=== PATIENT | female | born 1970 | race Caucasian/White ===

== ENCOUNTER 2017-04-19 10:10 | Emergency (ER) | payer SELFPAY ==
[2017-04-19] MEDS ORDERED: ONDANSETRON 4 MG TAB.RAPDIS PO ONE (11:18)
[2017-04-19] MEDS ORDERED: OXYCODONE-ACETAMINOPHEN 5-325 MG TABLET PO ONE (11:18)
--- NOTE | 2017-04-19 11:20 | ER Document Report ---
ED Medical Screen (RME) - General Chief Complaint: Abscess Stated Complaint: POSSIBLE ABSCESS Time Seen by Provider: 04/19/17 11:15 Notes: 46-year-old female with an abscess in the right breast under the superior areolar region. Started as a small knot a month ago and has gotten progressively worse the past 2 weeks, has been draining some. I have greeted and performed a rapid initial assessment of this patient. A comprehensive ED assessment and evaluation of the patient, analysis of test results and completion of the medical decision making process will be conducted by additional ED providers. TRAVEL OUTSIDE OF THE [place] IN LAST 30 DAYS: No - Related Data Allergies/Adverse Reactions: No Known Allergies Allergy (Verified 04/19/17 10:23) Past Medical History Renal/ Medical History: Denies: Hx Peritoneal Dialysis - Immunizations Immunizations up to date: Yes Hx Diphtheria, Pertussis, Tetanus Vaccination: Yes Physical Exam - Vital signs Vitals: Temp Pulse Resp BP Pulse Ox 98.2 F 80 17 146/86 H 99 04/19/17 10:24 04/19/17 10:24 04/19/17 10:24 04/19/17 10:24 04/19/17 10:24 Course - Vital Signs Vital signs: Temp Pulse Resp BP Pulse Ox 98.2 F 80 17 146/86 H 99 04/19/17 10:24 04/19/17 10:24 04/19/17 10:24 04/19/17 10:24 04/19/17 10:24
[2017-04-19] MEDS ORDERED: LIDOCAINE 1% INJ-PF (10 MG/ML) 30 ML SDV INJ ONE (12:46)
--- NOTE | 2017-04-19 12:53 | ER Document Report ---
ED General - General Chief Complaint: Abscess Stated Complaint: POSSIBLE ABSCESS Time Seen by Provider: 04/19/17 11:15 TRAVEL OUTSIDE OF THE [place] IN LAST 30 DAYS: No - HPI Notes: Patient is a 46-year-old female presents to the ED complaining of an abscess infection to her right nipple 1 month that has been worsening over the last 1- 2 weeks. Patient states that she was able to get scant amount discharge out of it a few days ago. She has stopped trying to get fluid out since then. + pain. She still eating during eye problems. She has not noticed any red streaking. She has no antibiotic allergies. No other significant past medical history. No surgical history. No other concerns or complaints. Denies any fever, headaches, URI, sore throat, chest pain, palpitations, syncope, cough, wheeze, shortness breath, dyspnea, abdominal pain, nausea/vomiting/diarrhea. - Related Data Allergies/Adverse Reactions: No Known Allergies Allergy (Verified 04/19/17 10:23) Past Medical History - Social History Smoking Status: Current Every Day Smoker Chew tobacco use (# tins/day): No Frequency of alcohol use: Occasional Drug Abuse: None Family History: Reviewed & Not Pertinent Patient has suicidal ideation: No Patient has homicidal ideation: No Renal/ Medical History: Denies: Hx Peritoneal Dialysis Surgical Hx: Negative - Immunizations Immunizations up to date: Yes Hx Diphtheria, Pertussis, Tetanus Vaccination: Yes Review of Systems - Review of Systems Notes: REVIEW OF SYSTEMS: CONSTITUTIONAL : Denies fever, chills, or sweats. Denies recent illness. EENT: Denies eye, ear, throat, or mouth pain or symptoms. Denies nasal or sinus congestion or discharge. Denies throat, tongue, or mouth swelling or difficulty swallowing. CARDIOVASCULAR: Denies chest pain. Denies palpitations or racing or irregular heart beat. Denies ankle edema. RESPIRATORY: Denies cough, cold, or chest congestion. Denies shortness of breath, difficulty breathing, or wheezing. GASTROINTESTINAL: Denies abdominal pain or distention. Denies nausea, vomiting , or diarrhea. Denies blood in vomitus, stools, or per rectum. Denies black, tarry stools. Denies constipation. GENITOURINARY: Denies difficulty urinating, painful urination, burning, frequency, blood in urine, or discharge. MUSCULOSKELETAL: Denies back or neck pain or stiffness. Denies joint pain or swelling. SKIN: see hpi ALL OTHER SYSTEMS REVIEWED AND NEGATIVE. Dictation was performed using [employer] voice recognition software Physical Exam - Vital signs Vitals: Temp Pulse Resp BP Pulse Ox 98.2 F 80 17 146/86 H 99 04/19/17 10:24 04/19/17 10:24 04/19/17 10:24 04/19/17 10:24 04/19/17 10:24 Notes: PHYSICAL EXAMINATION: GENERAL: Well-appearing, well-nourished and in no acute distress. NECK: Normal range of motion, supple without lymphadenopathy. No rigidity. Chest: + inflammation, abscess (approx 2-2.5cm), surrounding erythema with mild induration rt clarence-aeriola/nipple. + tenderness. No discharge. LUNGS: Breath sounds clear to auscultation bilaterally and equal. No wheezes rales or rhonchi. HEART: Regular rate and rhythm without murmurs, rubs, gallops. Extremities: No cyanosis, clubbing, or edema b/l. Peripheral pulses 2+. Capillary refill less than 3 seconds. PSYCH: Normal mood, normal affect. SKIN: Warm, Dry, normal turgor, no rashes or lesions noted.--See chest exam. Course - Re-evaluation Re-evalutation: 04/19/17 14:11 Patient is an afebrile, well-hydrated, 46-year-old female who presents to the ED with a nipple areolar abscess to the right side. Vitals are stable. PE otherwise unremarkable. Consult with surgeon Dr. Lester who will come perform an I&D and take over treatment. wound instructions per Dr. Lester. Ancef given IV today. Augmentin 875/125mg Rx'd PO BID x7 days. Wound culture obtained. F/u: with Dr. Park. Return to the ED with any worsening/ concerning symptoms otherwise as reviewed. Patient is in agreement. - Vital Signs Vital signs: Temp Pulse Resp BP Pulse Ox 98.2 F 55 L 16 147/89 H 99 04/19/17 10:24 04/19/17 16:00 04/19/17 16:00 04/19/17 16:00 04/19/17 16:00 Discharge - Discharge Clinical Impression: Abscess Cellulitis Qualifiers: Site of cellulitis: other site Qualified Code(s): L03.818 - Cellulitis of other sites Condition: Stable Disposition: HOME, SELF-CARE Instructions: Abscess ([facility]), Post Incision and Drainage Additional Instructions: Wound instructions as reviewed with Dr. Lester Wound dressing changes daily Use bacitracin as directed Take antibiotic as directed Recheck with Dr. Park (surgeon) Recheck with PCM this week as well Return to the ED with any worsening symptoms and/or development of fever, headache, chest pain, palpitations, syncope, shortness of breath, trouble breathing, abdominal pain, n/v/d, red streaks, or other worsening symptoms that are concerning to you. Prescriptions: Amox Tr/Potassium Clavulanate [Augmentin 875-125 Tablet] 1 tab PO BID 7 Days Referrals: JENNIFER PARK MD [ACTIVE STAFF] - Follow up as needed
[2017-04-19] MEDS ORDERED: MORPHINE SULFATE 10 MG/ML INJ IV ONE ×2 (13:28→14:30)
[2017-04-19] MEDS ORDERED: NORMAL SALINE INJ/PF 0.9% 10 ML SDV IV ONE (13:39)
[2017-04-19] MEDS ORDERED: CEFAZOLIN 2 GM/D5W RTU 2 GM/50 ML RTUPB IV SCH (15:00)
--- NOTE | 2017-04-19 15:44 | OPERATIVE REPORT E ---
Operative Report NAME: EVELINE ECHOLS : 1970 AGE: 46Y DATE OF SURGERY: 04/19/2017 ROOM: PREOPERATIVE DIAGNOSIS: Right nipple areolar complex abscess. POSTOPERATIVE DIAGNOSIS: Right nipple areolar complex abscess. PROCEDURE: Incision and drainage of right nipple areolar complex abscess. SURGEON: ALLIE ROWAN M.D. BEEF TRIMMER: None. BLEEDING: Minimal. COMPLICATIONS: None. ANESTHESIA: Three mL of 1% lidocaine with epinephrine and 4 mg IV push morphine. INDICATIONS AND FINDINGS: A healthy 46-year-old female with a month history of right nipple areolar complex inflammation, swelling, and redness which has become worse and has prompted the patient to come to the emergency room for the above symptoms today. On physical examination, she has an obvious abscess of the right nipple areolar complex in the top half with erythema extending into the breast. DESCRIPTION OF PROCEDURE: The procedure was done in the emergency room. A consent was obtained. The right breast was prepped and draped in the usual fashion. The area was infiltrated with lidocaine 1% about 30 mL. Subsequently a curvilinear incision was made at the edge between the areola and the skin. About 10 mL of pus was drained. Cultures were obtained and sent for gram stain, aerobic and anaerobic. After this, the area was irrigated with 100 mL of normal saline until clear, packed with a moist sponge, sterile dressing applied and taped. The patient tolerated the procedure well. She was discharged home in satisfactory condition. DICTATING PHYSICIAN: ALLIE ROWAN M.D. [id number] PHY#: [id number] ID: [id number] JOB#: [id number] ACCT: [id number] cc:ALLIE ROWAN M.D. > MTDD
[2017-04-19 17:02] VITALS: BP 147/89
[2017-04-19] MEDS ORDERED: BACITRACIN ZINC OINTMENT 15 GM TP SCH (18:00)
== END 2017-04-19 16:40 | disposition home or self-care (01) ==
LOC: ER 10:10
DX: L03.818 Cellulitis of other sites (principal); N61.1 Abscess of the breast and nipple; F17.200 Nicotine dependence, unspecified, uncomplicated
CPT/HCPCS: 99284; 96375; 96365; 87070; 87205; 87075; 87077; 87186; S0119; J3490; J2270; J0690; A6266